=== PATIENT | female | born 1960 ===

== ENCOUNTER 2016-12-14 10:40 | Emergency (ER) | payer MEDICAID, MEDICARE, OTHER ==
[2016-12-14 10:47] VITALS: BMI 29.3
[2016-12-14 10:48] VITALS: O2SAT 99
[2016-12-14] MEDS ORDERED: Sodium Chloride 0.9% 1,000 ML IV ONE (11:24)
--- NOTE | 2016-12-14 11:46 | C.PDOC ---
History Of Present Illness 56 year old female presents to the ED with complaints of nausea, vomiting, and epigastric pain for the past 3 days. Patient states she started having diarrhea and dizziness yesterday and notes she is unable to tolerate any PO intake. She has never experienced this before and denies fever, chills, dysuria, radiation of pain, or any other complaints at this time. Time Seen by Provider: 12/14/16 10:48 Chief Complaint (Nursing): Abdominal Pain History Per: Patient History/Exam Limitations: no limitations Onset/Duration Of Symptoms: Days Current Symptoms Are (Timing): Still Present Severity: Mild Location Of Pain/Discomfort: Epigastric Radiation Of Pain To:: None Quality Of Discomfort: "Pain" Associated Symptoms: Nausea, Vomiting, Diarrhea. denies: Fever, Chills, Back Pain, Urinary Symptoms Abnormal Vaginal Bleeding: No Past Medical History Reviewed: Historical Data, Nursing Documentation, Vital Signs Vital Signs: Last Vital Signs Temp 98.1 F 12/14/16 13:22 Pulse 68 12/14/16 13:22 Resp 15 12/14/16 13:22 BP 119/76 12/14/16 13:22 Pulse Ox 99 12/14/16 13:22 - Medical History PMH: Anxiety, Depression Surgical History: Appendectomy - [facility] Procedures COLONOSCOPY (02/11/15) Family History: States: Unknown Family Hx - Social History Hx Alcohol Use: No Hx Substance Use: No - Immunization History Hx Tetanus Toxoid Vaccination: No Hx Influenza Vaccination: No Hx Pneumococcal Vaccination: No Review Of Systems Except As Marked, All Systems Reviewed And Found Negative. Gastrointestinal: Positive for: Nausea, Vomiting, Abdominal Pain, Diarrhea Neurological: Positive for: Dizziness Physical Exam - Physical Exam Appears: Non-toxic, Other (+Mild discomfort) Skin: Normal Color, Warm, Dry Head: Atraumatic, Normacephalic Eye(s): bilateral: Normal Inspection Oral Mucosa: Moist Chest: Symmetrical, No Deformity Cardiovascular: Rhythm Regular, No Murmur Respiratory: Normal Breath Sounds, No Accessory Muscle Use, No Rales, No Rhonchi , No Wheezing Gastrointestinal/Abdominal: Soft, Tenderness (+Mild epigastric and periumbilical tenderness), No Distention, No Guarding, No Rebound, No Other ( Negative Segundo's sign. Negative McBurney's point tenderness) Extremity: Normal ROM Neurological/Psych: Oriented x3, Normal Speech, Normal Cognition ED Course And Treatment - Laboratory Results Result Diagrams: 12/14/16 11:49 12/14/16 11:49 O2 Sat by Pulse Oximetry: 99 (Room air) Pulse Ox Interpretation: Normal Progress Note: Blood work and Urinalysis ordered and reviewed. Patient treated with pepcid, zofran, and IV fluids. Disposition Counseled Patient/Family Regarding: Studies Performed, Diagnosis, Need For Followup, Rx Given - Disposition Referrals: Rd Tatum MD [Staff Provider] - Disposition: HOME/ ROUTINE Disposition Time: 13:30 Condition: STABLE Additional Instructions: FOLLOW UP WITH GASTRONETEROLOGY TOMMORROW USE MEDICATIONS DIRECTED AVOID SPICY, ACIDIC FOODS RETURN TO EMERGENCY ROOM IF SYMPTOMS WORSEN SEGUIMIENTO CON GASTROENTEROLOGA MAANA USE MEDICAMENTOS SEGN LO DIRIGIDO EVITE LOS ALIMENTOS ACIDICOS DEVUELVA A LA NI DE EMERGENCIA SI LOS SNTOMAS EMPEORARAN Prescriptions: Pantoprazole [Protonix EC Tab] 20 mg PO DAILY #30 ect Ondansetron [Zofran Odt] 4 mg PO Q8 PRN #10 odt PRN Reason: Nausea/Vomiting Instructions: Epigastric Pain (ED) Print Language: BR[place] - POA Present On Arrival: None - Clinical Impression Clinical Impression: Abdominal pain, Epigastric abdominal pain - Scribe Statement The provider has reviewed the documentation as recorded by the Scribe mat see. Provider Attestation: All medical record entries made by the Scribe were at my direction and personally dictated by me. I have reviewed the chart and agree that the record accurately reflects my personal performance of the history, physical exam, medical decision making, and the department course for this patient. I have also personally directed, reviewed, and agree with the discharge instructions and disposition.
[2016-12-14 11:53] LABS: BASO # 0.1 K/uL (0.0-0.2); BASO % 0.9 % (0.0-2.0); EOS % 0.2 % (0.0-4.0); HEMATOCRIT 44.3 % (34.0-47.0); LYMPH % 24.4 % (20.0-40.0); MEAN CELL VOLUME 88.9 fL (81.0-99.0); MEAN CORPUSCULAR HEMOGLOBIN 29.6 pg (27.0-31.0); MEAN CORPUSCULAR HGB CONC 33.3 g/dL (33.0-37.0); MEAN PLATELET VOLUME 8.9 fL (7.2-11.7); MONO # 0.5 K/uL (0.0-0.8); MONO % 6.1 % (0.0-10.0); NRBC % 0.1 % (0.0-2.0); RED CELL DISTRIBUTION WIDTH 13.4 % (11.5-14.5); WHITE BLOOD COUNT 8.3 K/uL (4.8-10.8)
[2016-12-14] MEDS ORDERED: Sodium Chloride 0.9% 1,000 ML ONE (11:53)
[2016-12-14 12:01] LABS: CHLORIDE 103 mmol/L (98-107); SODIUM 141 mmol/L (132-148)
[2016-12-14 12:02] LABS: POTASSIUM 3.9 mmol/L (3.6-5.2)
[2016-12-14 12:04] LABS: ALB/GLOB RATIO 1.1 (1.0-2.1); ALKALINE PHOSPHATASE 77 U/L (38-126); ALT/SGPT 43 U/L (9-52); AST/SGOT 35 U/L (14-36); BILIRUBIN,TOTAL 0.7 mg/dL (0.2-1.3); BLOOD UREA NITROGEN 14 mg/dL (7-17); CALCIUM 8.8 mg/dl (8.6-10.4); CARBON DIOXIDE 26 mmol/L (22-30); GFR AFRICAN-AMERICAN > 60; GLUCOSE,RANDOM 80 mg/dL (65-105); TOTAL PROTEIN 7.2 g/dL (6.3-8.3)
[2016-12-14 12:07] LABS: RBC URINE 2 /hpf (0-3); URINE BACTERIA RARE (<OCC); URINE BILIRUBIN NEGATIVE (NEGATIVE); URINE BLOOD NEGATIVE (NEGATIVE); URINE COLOR Yellow (YELLOW); URINE GLUCOSE (UA) NORMAL (Normal); URINE KETONE TRACE mg/dL (NEGATIVE); URINE LEUKOCYTE ESTERASE 1+ Leu/uL (Negative); URINE PROTEIN NEGATIVE (NEGATIVE); URINE UROBILINOGEN NORMAL mg/dL (0.2-1.0); WBC URINE 7 /hpf (0-5)
[2016-12-14 13:23] VITALS: BP 119/76; PULSE 68; RESP 15; TEMP 98.1
== END 2016-12-14 13:50 | disposition home or self-care (01) ==
LOC: C.ER 10:40
DX: R10.13 Epigastric pain (principal)
CPT/HCPCS: 80053; 81001; 83690; 85025; 96361; 96374; 96375; 99285; J1885; J2405; J7040

== ENCOUNTER 2017-01-02 07:21 | Day surgery (SDC) | payer MEDICARE ==
[2017-01-02 07:47] VITALS: BMI 28.8
[2017-01-02] MEDS ORDERED: Midazolam 2 MG/2 ML VIAL ONE (08:37)
[2017-01-02] MEDS ORDERED: Propofol 10 mg/ml Inj (20 ML) ONE (08:37)
--- NOTE | 2017-01-02 08:40 | CP.SDSHP ---
Same Day Surgery H & P - History Proposed Procedure: EGD - Previous Medical/Surgical History Comments: Fibromyalgia, osteoporosis, osteoarthritis Previous Surgical History: Partial hysterectomy, appendectomy - Allergies Allergies: Allergies Penicillins Allergy (Verified 12/14/16 10:43) URTICARIA - Current Medications Current Medications: See reconciliation sheet - Physical Exam General Appearance: WD WN female in NAD Vital Signs: Vital Signs 01/02/17 07:47 Temperature 97.4 F L Pulse Rate 59 L Respiratory 19 Rate Blood Pressure 114/82 O2 Sat by Pulse 99 Oximetry Mental Status: Alert & Oriented x3 Neuro: WNL Heart: WNL Lungs: WNL GI: WNL - {Optional Preform as Required} Abdomen: WNL - Impression Impression: Epigastric pain Pt. Evaluated Today:Candidate for Anesthesia & Procedure: Yes - Date & Time Date: 01/02/17 Time: 08:40 Short Stay Discharge - Short Stay Discharge Admitting Diagnosis/Reason for Visit: EPIGASTRIC PAIN Disposition: HOME/ ROUTINE
[2017-01-02] MEDS ORDERED: Lactated Ringer's 500 ML IV ONE (09:25)
[2017-01-02 09:31] VITALS: TEMP 97.6; O2SAT 100
[2017-01-02 10:27] VITALS: BP 130/78; PULSE 58; RESP 10
== END 2017-01-02 10:52 | disposition home or self-care (01) ==
LOC: C.ENDO 07:21
PROVIDERS: ATTEND Internal Medicine Gastroenterology
DX: K22.2 Esophageal obstruction (principal); K44.9 Diaphragmatic hernia without obstruction or gangrene; K29.50 Unspecified chronic gastritis without bleeding; B96.81 Helicobacter pylori [H. pylori] as the cause of diseases classified elsewhere; K31.7 Polyp of stomach and duodenum
CPT/HCPCS: 43239; 88305; J2001; J2250; J2704; J7120

== ENCOUNTER 2017-10-16 05:58 | Day surgery (SDC) | payer MEDICARE ==
[2017-03-02 10:40] VITALS: BMI 28.8
[2017-10-16] MEDS ORDERED: ePHEDrine 50 mg/ml Inj ONE (08:10)
[2017-10-16] MEDS ORDERED: Lidocaine Hydrochloride 5 ML INJ ONE (08:10)
[2017-10-16] MEDS ORDERED: Midazolam 2 MG/2 ML VIAL ONE (08:11)
[2017-10-16] MEDS ORDERED: Propofol 10 mg/ml Inj (20 ML) ONE ×2 (08:11→09:04)
--- NOTE | 2017-10-16 08:53 | CP.SDSHP ---
Same Day Surgery H & P - History Proposed Procedure: colonoscopy Pre-Op Diagnosis: Change in bowel habits - Previous Medical/Surgical History Comments: Arthritis, osteoporosis Previous Surgical History: Hysterectomy, appendectomy - Allergies Allergies: Allergies Penicillins Allergy (Severe, Verified 05/25/17 08:07) CONVULSIONS - Current Medications Current Medications: See reconciliation sheet - Physical Exam General Appearance: WD WN female in NAD Vital Signs: Vital Signs 10/16/17 10/16/17 06:41 08:48 Temperature 99.6 F 99.6 F Pulse Rate 72 72 Respiratory 19 19 Rate Blood Pressure 123/80 123/80 O2 Sat by Pulse 99 99 Oximetry Mental Status: Alert & Oriented x3 Neuro: WNL Heart: WNL Lungs: WNL GI: WNL - {Optional Preform as Required} Abdomen: WNL - Impression Impression: Chamge in bowel habits Pt. Evaluated Today:Candidate for Anesthesia & Procedure: Yes - Date & Time Date: 10/16/17 Time: 08:52 Short Stay Discharge - Short Stay Discharge Admitting Diagnosis/Reason for Visit: CHANGE IN BOWEL HABITS Disposition: HOME/ ROUTINE
[2017-10-16 10:26] VITALS: TEMP 97.1
[2017-10-16] MEDS: Lactated Ringer's 1,000 ML IV SCH ×2 (12:03→15:48)
[2017-10-16 15:58] VITALS: BP 128/88; PULSE 62; RESP 18; O2SAT 98
== END 2017-10-16 12:03 | disposition home or self-care (01) ==
LOC: C.ENDO 05:58
PROVIDERS: ATTEND Internal Medicine Gastroenterology
DX: R19.4 Change in bowel habit (principal); M81.0 Age-related osteoporosis without current pathological fracture; M19.90 Unspecified osteoarthritis, unspecified site; Z88.0 Allergy status to penicillin; K64.0 First degree hemorrhoids
CPT/HCPCS: 45378; J2250; J2405; J2704; J7120

== ENCOUNTER 2018-03-30 12:22 | Emergency (ER) | payer MEDICARE ==
[2018-03-30 12:23] VITALS: BMI 29.3
[2018-03-30 12:33] VITALS: TEMP 98.3; O2SAT 100
--- NOTE | 2018-03-30 14:25 | C.PDOC ---
History Of Present Illness 57 y/o female presents to ED with c/o left upper back pain for 3 days. Patient states she has seen PMD for symptoms and given Percocet, last dose was taken last night and states she does not have anymore medication. Contrary to triage patient denies chest pain and states chronic back and neck pain are more intense now prompting visit to ED. Patient denies fever, chills, nausea, vomiting, bowel/bladder incontinence or any other complaints at this time. Time Seen by Provider: 03/30/18 12:28 Chief Complaint (Nursing): Chest Pain History Per: Patient History/Exam Limitations: no limitations Onset/Duration Of Symptoms: Days Current Symptoms Are (Timing): Still Present Quality Of Discomfort: "Pain" Past Medical History Reviewed: Historical Data, Nursing Documentation, Vital Signs Vital Signs: Last Vital Signs Temp 98.3 F 03/30/18 12:29 Pulse 82 03/30/18 14:08 Resp 20 03/30/18 14:08 BP 145/85 03/30/18 14:08 Pulse Ox 100 03/30/18 14:56 - Medical History PMH: Anxiety, Depression, Fibromyalgia, Hiatal Hernia, Osteoporosis Surgical History: Appendectomy, Cholecystectomy, Endoscopy - [facility] Procedures COLONOSCOPY (02/11/15) Family History: States: No Known Family Hx - Social History Hx Alcohol Use: No Hx Substance Use: No - Immunization History Hx Tetanus Toxoid Vaccination: No Hx Influenza Vaccination: No Hx Pneumococcal Vaccination: No Review Of Systems Constitutional: Negative for: Fever, Chills Gastrointestinal: Negative for: Nausea, Vomiting, Abdominal Pain Genitourinary: Negative for: Dysuria, Incontinence Musculoskeletal: Positive for: Back Pain Skin: Negative for: Rash Neurological: Negative for: Weakness, Numbness Physical Exam - Physical Exam Appears: Non-toxic, No Acute Distress Skin: Warm, Dry, No Rash Head: Atraumatic, Normacephalic Eye(s): bilateral: Normal Inspection Oral Mucosa: Moist Neck: Decreased ROM Cardiovascular: Rhythm Regular Respiratory: Normal Breath Sounds, No Rales, No Rhonchi, No Wheezing Gastrointestinal/Abdominal: Soft, No Tenderness, No Guarding, No Rebound Back: Muscle Spasm, Other (Bilateral upper back tenderness) Neurological/Psych: Oriented x3, Normal Speech, Normal Motor, Normal Sensation ED Course And Treatment O2 Sat by Pulse Oximetry: 100 Medical Decision Making Medical Decision Making: PRIOR RECORDS REVIEWED: MRI 07/2017- SHOULDER TENDON TENDERNESS C-SPINE CT SCAN- BULGE SPINE C5-C6 & NERVE CYST @C6-C7 MRI 07/2017- LS SPINE NEGATIVE RESULTS, WITHIN NORMAL LIMITS PT ALREADY UNDER CARE OF SPINAL/PAIN MGMT. ADVISED NEED FOR FU FOR PAIN MED ADJUST Disposition Counseled Patient/Family Regarding: Diagnosis, Need For Followup - Disposition Referrals: YOUR,SPINAL/PAIN MGMT MD [Other] Disposition: HOME/ ROUTINE Disposition Time: 15:29 Condition: IMPROVED Prescriptions: Cyclobenzaprine [Flexeril] 10 mg PO TID #15 tab Gabapentin [Neurontin] 300 mg PO TID #30 cap Ibuprofen [Motrin] 600 mg PO Q6 #30 tab Instructions: Radiculopathy (DC) Forms: [employer] (Korean) Print Language: MONTENEGRIN - Clinical Impression Clinical Impression: Cervical radiculopathy - Scribe Statement The provider has reviewed the documentation as recorded by the Pettyibdorian Stringer All medical record entries made by the Pettyibdorian were at my direction and personally dictated by me. I have reviewed the chart and agree that the record accurately reflects my personal performance of the history, physical exam, medical decision making, and the department course for this patient. I have also personally directed, reviewed, and agree with the discharge instructions and disposition.
[2018-03-30] MEDS ORDERED: Dexamethasone 4 mg/1 ml IVP STA (14:27)
[2018-03-30 15:18] LABS: SQUAMOUS EPITHIAL 2 /hpf (0-5); URINE BILIRUBIN NEGATIVE (NEGATIVE); URINE BLOOD NEGATIVE (NEGATIVE); URINE CLARITY Clear (Clear); URINE COLOR Yellow (YELLOW); URINE GLUCOSE (UA) NORMAL (Normal); URINE LEUKOCYTE ESTERASE NEG Leu/uL (Negative); URINE PROTEIN NEGATIVE (NEGATIVE); URINE UROBILINOGEN NORMAL mg/dL (0.2-1.0)
[2018-03-30 16:03] VITALS: BP 133/84; PULSE 60; RESP 20
== END 2018-03-30 16:49 | disposition home or self-care (01) ==
LOC: C.ER 12:22
DX: M54.12 Radiculopathy, cervical region (principal)
CPT/HCPCS: 81001; 96374; 96375; 99284; J1100; J1885

== ENCOUNTER 2018-12-28 06:01 | Observation (INO) | payer MEDICARE ==
[2018-12-28 06:02] VITALS: BMI 29.3
[2018-12-28] MEDS ORDERED: Sodium Chloride 0.9% 1,000 ML IV ONE (07:43)
--- NOTE | 2018-12-28 07:49 | C.PDOC ---
History Of Present Illness 58 y/o female c/o abdominal pain for 2 weeks; seen in ED twice, once on 12/15 and once on 12/22, diagnosed with colitis on second visit and discharged with cipro and flagyl. pt did not take antibiotics due to several episodes of vomiting per day, sts she wouldn't hold them down and her stomach hurts; as well, sts she had blood in her stool on Mon with diarrhea. no bm since mon. pt reports she is unable to tolerate anything by mouth. Time Seen by Provider: 12/28/18 06:59 Chief Complaint (Nursing): Abdominal Pain History Per: Patient, Blueprint Duplicator (Kady [id number]) History/Exam Limitations: language barrier Onset/Duration Of Symptoms: Days (2 weeks) Current Symptoms Are (Timing): Still Present Location Of Pain/Discomfort: Diffuse Quality Of Discomfort: Unable To Describe Associated Symptoms: Nausea, Vomiting, Diarrhea, Urinary Symptoms Exacerbating Factors: None Last Bowel Movement: Days Ago (2) Past Medical History Reviewed: Historical Data, Nursing Documentation, Vital Signs Vital Signs: Last Vital Signs Temp 97.9 F 12/28/18 06:25 Pulse 98 H 12/28/18 06:25 Resp 16 12/28/18 06:25 BP 136/83 12/28/18 06:25 Pulse Ox 98 12/28/18 06:25 - Medical History PMH: Anxiety, Depression, Fibromyalgia, Hiatal Hernia, Osteoporosis Denies: Chronic Kidney Disease Surgical History: Appendectomy, Cholecystectomy, Endoscopy - [facility] Procedures COLONOSCOPY (02/11/15) Family History: States: Unknown Family Hx - Social History Hx Alcohol Use: No Hx Substance Use: No - Immunization History Hx Tetanus Toxoid Vaccination: No Hx Influenza Vaccination: No Hx Pneumococcal Vaccination: No Review Of Systems Constitutional: Positive for: Fever (2 weeks ago) Cardiovascular: Negative for: Chest Pain Respiratory: Positive for: Cough. Negative for: Shortness of Breath Gastrointestinal: Positive for: Nausea, Vomiting, Abdominal Pain, Diarrhea Genitourinary: Positive for: Dysuria Skin: Positive for: Bruising (lower back from pain mgmt injections) Neurological: Negative for: Weakness, Numbness Physical Exam - Physical Exam Appears: Non-toxic, No Acute Distress Skin: Warm, Dry Head: Atraumatic, Normacephalic Eye(s): bilateral: Normal Inspection Tongue: Other (dry, whitish coating) Lips: Other (chapped) Neck: Supple Chest: No Deformity, No Tenderness Cardiovascular: Rhythm Regular, No Murmur Respiratory: No Decreased Breath Sounds, No Wheezing Rectal: Normal Exam, Other (premium service representative by PERRY Cook) Extremity: No Tenderness, No Swelling ED Course And Treatment - Laboratory Results Result Diagrams: 12/28/18 07:55 12/28/18 07:55 O2 Sat by Pulse Oximetry: 98 Medical Decision Making Medical Decision Making: pt with diffuse abdominal pain, n,v,d, blood in stool, not tolerating po. pt has had [address] scans 12/15 and 12/22, colitis noted on second exam. pt now with elevated wbc, will give iv antibiotics and admit. will not get another ct scan at this time. will get gi consult. discusses with Dr Jayy Oliva, will admit to his service. Disposition Discussed With : Emily Oliva Doctor Will See Patient In The: Hospital - Disposition Disposition: HOSPITALIZED Disposition Time: 08:47 Condition: GOOD Forms: [facility] (Welsh) - Clinical Impression Clinical Impression: Abdominal pain, Colitis
[2018-12-28 08:02] LABS: BASO # 0.1 K/uL (0.0-0.2); BASO % 0.7 % (0.0-2.0); HEMOGLOBIN 14.6 g/dL (11.0-16.0); LYMPH # 1.3 K/uL (1.0-4.3); LYMPH % 11.1 % (20.0-40.0); MEAN CELL VOLUME 90.6 fL (81.0-99.0); MEAN CORPUSCULAR HGB CONC 34.2 g/dL (33.0-37.0); MEAN PLATELET VOLUME 9.8 fL (7.2-11.7); MONO # 0.4 K/uL (0.0-0.8); MONO % 3.2 % (0.0-10.0); NEUT # 10.1 K/uL (1.8-7.0); RBC 4.72 Mil/uL (3.80-5.20); RED CELL DISTRIBUTION WIDTH 13.5 % (11.5-14.5)
[2018-12-28] MEDS ORDERED: Sodium Chloride 0.9% 1,000 ML ONE (08:10)
[2018-12-28 08:13] LABS: ALB/GLOB RATIO 1.5 (1.0-2.1); ALBUMIN 4.1 g/dL (3.5-5.0); ALT/SGPT 18 U/L (9-52); AST/SGOT 25 U/L (14-36); BLOOD UREA NITROGEN 14 mg/dL (7-17); CALCIUM 9.2 mg/dl (8.6-10.4); GFR NON-AFRICAN AMERICAN > 60; LIPASE 46 U/L (23-300)
[2018-12-28] MEDS ORDERED: metroNIDAZOLE IV 500 mg/100 ml 500 MG/100 ML BAG IVPB STA (08:42)
[2018-12-28] MEDS ORDERED: Ciprofloxacin 400mg/200ml D5W 400 MG/200 ML BAG IVPB STA (08:42)
[2018-12-28] MEDS ORDERED: metroNIDAZOLE IV 500 mg/100 ml 500 MG/100 ML BAG ONE (08:50)
[2018-12-28] MEDS ORDERED: Ciprofloxacin 400mg/200ml D5W 400 MG/200 ML BAG IVPB ONE (10:07)
[2018-12-28 10:44] LABS: SQUAMOUS EPITHIAL 3 /hpf (0-5); URINE BACTERIA RARE (<OCC); URINE BILIRUBIN NEGATIVE (NEGATIVE); URINE BLOOD NEGATIVE (NEGATIVE); URINE CLARITY Clear (Clear); URINE COLOR Yellow (YELLOW); URINE GLUCOSE (UA) NORMAL (Normal); URINE LEUKOCYTE ESTERASE NEG Leu/uL (Negative); URINE PROTEIN NEGATIVE (NEGATIVE); URINE UROBILINOGEN NORMAL mg/dL (0.2-1.0)
--- NOTE | 2018-12-28 13:23 | CP.PCM.CON ---
History of Present Illness - History of Present Illness History of Present Illness: This is a 58 year old woman with abdominal pain. Patient is known to me from the office. She complains of diffuse abdominal pain for the past month. the pain is described as sharp, stabbing, occurring daily, essentially constant, worse after eating and unrelated to defecation. She also reports having a second type of abdominal discomfort, associated with defecation, an unpleasant sensation which seems to improve when she strains. While pushing, she develops pain in the lower abdomen, twisting, radiating to the left lower extremity and relieved by standing. She also complains of nausea, moving, loss of appetite and heartburn. She had diarrhea and rectal bleeding which prompted her to present to the ER at [facility] on 12/15/18 and 12/22/18. At [facility], she was evaluated with blood tests and CT scans on both occasions. The first scan was normal, but the second scan, the one performed on 12/22/18 suggested thickening of the wall of the distal rectosigmoid colon and rectum, possibly due to under-distention. She was given prescriptions for ciprofloxacin and metronidazole, but did not fill them. The symptoms persisted, and she presented to the ER at today. She has not had any diarrhea since Monday, but still has pain and is vomiting daily. Vital signs were stable. Colonoscopy was performed 10/16/2017 and was normal except for internal hemorrhoids. EGD was perfomed 01/02/17 and shewed hiatal hernia, erosive gastritis, and H pylori infection. Review of Systems - Review of Systems All systems: reviewed and no additional remarkable complaints except - Constitutional Constitutional: Fever. absent: Weight Loss - Cardiovascular Cardiovascular: absent: Chest Pain - Respiratory Respiratory: Cough. absent: Dyspnea - Gastrointestinal Gastrointestinal: Abdominal Pain, Diarrhea, Heartburn, Hematochezia, Nausea, Vomiting. absent: Dysphagia - Genitourinary Genitourinary: Dysuria - Neurological Neurological: absent: Numbness, Weakness Past Patient History - Infectious Disease Hx of Infectious Diseases: None - Tetanus Immunizations Tetanus Immunization: Unknown - Past Medical History & Family History Past Medical History?: Yes - Past Social History Smoking Status: Never Smoked - PULMONARY Hx Respiratory Disorders: No - NEUROLOGICAL Hx Neurological Disorder: Yes - HEENT Hx HEENT Problems: No - RENAL Hx Chronic Kidney Disease: No - ENDOCRINE/METABOLIC Hx Endocrine Disorders: No - HEMATOLOGICAL/ONCOLOGICAL Hx Blood Disorders: No - INTEGUMENTARY Hx Dermatological Problems: No - MUSCULOSKELETAL/RHEUMATOLOGICAL Hx Osteoporosis: Yes - GASTROINTESTINAL Hx Gastrointestinal Disorders: Yes - GENITOURINARY/GYNECOLOGICAL Hx Genitourinary Disorders: No - PSYCHIATRIC Hx Anxiety: Yes Hx Depression: Yes Hx Substance Use: No - SURGICAL HISTORY Hx Appendectomy: Yes Hx Cholecystectomy: Yes - ANESTHESIA Hx Anesthesia: Yes Hx Anesthesia Reactions: No Hx Malignant Hyperthermia: No Meds Allergies/Adverse Reactions: Allergies Allergy/AdvReac Type Severity Reaction Status Date / Time Penicillins Allergy Severe CONVULSIONS Verified 12/28/18 06:30 - Medications Medications: Current Medications Cyclobenzaprine HCl (Flexeril) 5 mg PO TID PRN PRN Reason: Muscle spasm Ciprofloxacin (Cipro 200mg/100ml D5w) 100 mls @ 67 mls/hr IVPB Q12H DYLAN; Protocol Metronidazole 250 mg/ (Miscellaneous) 50 mls @ 100 mls/hr IVPB Q8H DYLAN; Protocol Ibuprofen (Motrin Tab) 600 mg PO Q6 PRN PRN Reason: Pain, moderate (4-7) Lidocaine (Lidoderm) 1 ea TD DAILY PRN PRN Reason: Pain, moderate (4-7) Loperamide HCl (Imodium) 2 mg PO Q6 PRN PRN Reason: Diarrhea Losartan Potassium (Cozaar) 50 mg PO DAILY DYLAN Ondansetron HCl (Zofran Tab) 4 mg PO Q8H PRN PRN Reason: Nausea/Vomiting Sertraline HCl (Zoloft) 100 mg PO DAILY DYLAN Physical Exam - Constitutional Appears: No Acute Distress - Head Exam Head Exam: ATRAUMATIC, NORMOCEPHALIC - Eye Exam Eye Exam: EOMI, PERRL - Neck Exam Neck exam: Negative for: Lymphadenopathy, Thyromegaly - Respiratory Exam Respiratory Exam: NORMAL BREATHING PATTERN. absent: Rales, Rhonchi, Wheezes - Cardiovascular Exam Cardiovascular Exam: REGULAR RHYTHM, +S1, +S2. absent: Gallop, Rubs, Systolic Murmur - GI/Abdominal Exam GI & Abdominal Exam: Normal Bowel Sounds, Soft, Tenderness. absent: Mass, Organomegaly Additional comments: Mild tenderness to palpation in RLQ - Rectal Exam Rectal Exam: Deferred - Extremities Exam Extremities exam: Negative for: calf tenderness, pedal edema Results - Vital Signs Recent Vital Signs: Last Vital Signs Temp 98.8 F 12/28/18 12:42 Pulse 68 12/28/18 12:42 Resp 18 12/28/18 12:42 BP 128/82 12/28/18 12:42 Pulse Ox 96 12/28/18 12:42 - Labs Result Diagrams: 12/28/18 07:55 12/28/18 07:55 Labs: Laboratory Results - last 24 hr 12/28/18 12/28/18 12/28/18 07:53 07:55 07:55 WBC 12.0 H D RBC 4.72 Hgb 14.6 Hct 42.8 MCV 90.6 MCH 31.0 MCHC 34.2 RDW 13.5 Plt Count 267 MPV 9.8 Neut % (Auto) 85.0 H Lymph % (Auto) 11.1 L [place] % (Auto) 3.2 Eos % (Auto) 0.0 Baso % (Auto) 0.7 Neut # (Auto) 10.1 H Lymph # (Auto) 1.3 [place] # (Auto) 0.4 Eos # (Auto) 0.0 Baso # (Auto) 0.1 Sodium 138 Potassium 4.0 Chloride 106 Carbon Dioxide 25 Anion Gap 11 BUN 14 Creatinine 0.7 Est GFR ( Amer) > 60 Est GFR (Non-Af Amer) > 60 Random Glucose 104 Calcium 9.2 Total Bilirubin 0.3 AST 25 ALT 18 Alkaline Phosphatase 87 Total Protein 6.9 Albumin 4.1 Globulin 2.8 Albumin/Globulin Ratio 1.5 Lipase 46 Urine Color Urine Clarity Urine pH Ur Specific [place] Urine Protein Urine Glucose (UA) Urine Ketones Urine Blood Urine Nitrate Urine Bilirubin Urine Urobilinogen Ur Leukocyte Esterase Urine WBC (Auto) Urine RBC (Auto) Ur Squamous Epith Cells Urine Bacteria Stool Occult Blood Positive H 12/28/18 10:24 WBC RBC Hgb Hct MCV MCH MCHC RDW Plt Count MPV Neut % (Auto) Lymph % (Auto) [place] % (Auto) Eos % (Auto) Baso % (Auto) Neut # (Auto) Lymph # (Auto) [place] # (Auto) Eos # (Auto) Baso # (Auto) Sodium Potassium Chloride Carbon Dioxide Anion Gap BUN Creatinine Est GFR ( Amer) Est GFR (Non-Af Amer) Random Glucose Calcium Total Bilirubin AST ALT Alkaline Phosphatase Total Protein Albumin Globulin Albumin/Globulin Ratio Lipase Urine Color Yellow Urine Clarity Clear Urine pH 5.0 Ur Specific [place] 1.010 Urine Protein Negative Urine Glucose (UA) Normal Urine Ketones Negative Urine Blood Negative Urine Nitrate Negative Urine Bilirubin Negative Urine Urobilinogen Normal Ur Leukocyte Esterase Neg Urine WBC (Auto) 4 Urine RBC (Auto) 1 Ur Squamous Epith Cells 3 Urine Bacteria Rare Stool Occult Blood Assessment & Plan (1) Abdominal pain Assessment and Plan: Patient has a one month history of abdominal pain with CT scan showing only possible wall thickening of rectum and rectosigmoid. Stool occult blood was positive, but HGB has been stable at 14.5-14.6. Last colonoscopy was negative (10/16/17). Will check CT angiogram. Colonoscopy can be repeated Monday or as an outpatient. Status: Acute
[2018-12-28] MEDS ORDERED: Iodixanol 320 MG/ML 100 ML BOTTLE IV ONE (16:28)
--- NOTE | 2018-12-28 17:12 | CT ---
Date of service: 12/28/2018 PROCEDURE: CT Angiography Abdomen, Pelvis and Lower Extremity with Contrast HISTORY: Abdominal pain, mesenteric ischemia COMPARISON: None. TECHNIQUE: Technique: CT angiography of the abdomen, pelvis and bilateral lower extremities performed in the arterial phase of enhancement. Coronal and sagittal reformats, and well as rotating MIP images of the vessels generated at the workstation. Intravenous contrast dose: 100 mL Visipaque 320 Radiation dose: Total exam DLP = 1091.36 mGy-cm. This CT exam was performed using one or more of the following dose reduction techniques: Automated exposure control, adjustment of the mA and/or kV according to patient size, and/or use of iterative reconstruction technique. FINDINGS: CT ANGIOGRAPHY: No aortic atherosclerotic calcification or mural plaque present. ABDOMINAL AORTA:: No evidence of aneurysm. No evidence of dissection. No atherosclerotic calcification. MAJOR AORTIC BRANCHES: Celiac [place]: Unremarkable. Superior mesenteric artery: Unremarkable. Inferior mesenteric artery: Unremarkable. Renal arteries: Unremarkable. PELVIC ARTERIES: Right Common Iliac: Unremarkable. Right External Iliac: Unremarkable. Right Internal Iliac: Unremarkable. Left Common Iliac: Unremarkable. Left External Iliac: Unremarkable. Left Internal Iliac: Unremarkable. NON-ANGIOGRAPHIC ASPECT OF THE EXAM: LOWER THORAX: Unremarkable. LIVER: Unremarkable. No gross lesion or ductal dilatation. GALLBLADDER AND BILE DUCTS: Status post cholecystectomy PANCREAS: Unremarkable. No gross lesion or ductal dilatation. SPLEEN: Unremarkable. ADRENALS: Unremarkable. No mass. KIDNEYS AND URETERS: Unremarkable. No hydronephrosis. No solid mass. STOMACH AND BOWEL: Unremarkable. No obstruction. No gross mural thickening. APPENDIX: Not identified. No secondary findings to suggest acute appendicitis. PERITONEUM: Unremarkable. No free fluid. No free air. LYMPH NODES: Unremarkable. No enlarged lymph nodes. BLADDER: Suboptimally distended. Grossly unremarkable. REPRODUCTIVE: Status post hysterectomy BONES: No acute fracture. OTHER FINDINGS: None. IMPRESSION: No evidence of SMA thrombosis. Minor findings as above.
[2018-12-28] MEDS: metroNIDAZOLE IV 500 mg/100 ml 250 MG in Premixed IV 1 EA IVPB SCH ×2 (17:46→23:50)
[2018-12-28] MEDS: Lidocaine 5% Patch TD PRN (18:40)
--- NOTE | 2018-12-28 19:56 | CP.PCM.HP ---
Past Patient History - Infectious Disease Hx of Infectious Diseases: None - Tetanus Immunizations Tetanus Immunization: Unknown - Past Medical History & Family History Past Medical History?: Yes - Past Social History Smoking Status: Never Smoked - PULMONARY Hx Respiratory Disorders: No - NEUROLOGICAL Hx Neurological Disorder: Yes - HEENT Hx HEENT Problems: No - RENAL Hx Chronic Kidney Disease: No - ENDOCRINE/METABOLIC Hx Endocrine Disorders: No - HEMATOLOGICAL/ONCOLOGICAL Hx Blood Disorders: No - INTEGUMENTARY Hx Dermatological Problems: No - MUSCULOSKELETAL/RHEUMATOLOGICAL Hx Osteoporosis: Yes - GASTROINTESTINAL Hx Gastrointestinal Disorders: Yes - GENITOURINARY/GYNECOLOGICAL Hx Genitourinary Disorders: No - PSYCHIATRIC Hx Anxiety: Yes Hx Depression: Yes Hx Substance Use: No - SURGICAL HISTORY Hx Appendectomy: Yes Hx Cholecystectomy: Yes - ANESTHESIA Hx Anesthesia: Yes Hx Anesthesia Reactions: No Hx Malignant Hyperthermia: No Meds Allergies/Adverse Reactions: Allergies Allergy/AdvReac Type Severity Reaction Status Date / Time Penicillins Allergy Severe CONVULSIONS Verified 12/28/18 06:30 Physical Exam - Constitutional Appears: Well - Head Exam Head Exam: ATRAUMATIC, NORMAL INSPECTION, NORMOCEPHALIC - Eye Exam Eye Exam: EOMI, Normal appearance, PERRL Pupil Exam: NORMAL ACCOMODATION, PERRL - ENT Exam ENT Exam: Mucous Membranes Moist, Normal Exam - Neck Exam Neck exam: Positive for: Normal Inspection - Respiratory Exam Respiratory Exam: Decreased Breath Sounds - Cardiovascular Exam Cardiovascular Exam: REGULAR RHYTHM, +S1, +S2 - GI/Abdominal Exam GI & Abdominal Exam: Diminished Bowel Sounds, Soft - Rectal Exam Rectal Exam: Deferred - Neurological Exam Neurological exam: Oriented x3 Results - Vital Signs Recent Vital Signs: Last Vital Signs Temp 97.9 F 12/28/18 16:00 Pulse 66 12/28/18 16:00 Resp 20 12/28/18 16:00 BP 127/83 12/28/18 16:00 Pulse Ox 98 12/28/18 16:00 - Labs Result Diagrams: 12/28/18 07:55 12/28/18 07:55 Labs: Laboratory Results - last 24 hr 12/28/18 12/28/18 12/28/18 07:53 07:55 07:55 WBC 12.0 H D RBC 4.72 Hgb 14.6 Hct 42.8 MCV 90.6 MCH 31.0 MCHC 34.2 RDW 13.5 Plt Count 267 MPV 9.8 Neut % (Auto) 85.0 H Lymph % (Auto) 11.1 L [place] % (Auto) 3.2 Eos % (Auto) 0.0 Baso % (Auto) 0.7 Neut # (Auto) 10.1 H Lymph # (Auto) 1.3 [place] # (Auto) 0.4 Eos # (Auto) 0.0 Baso # (Auto) 0.1 Sodium 138 Potassium 4.0 Chloride 106 Carbon Dioxide 25 Anion Gap 11 BUN 14 Creatinine 0.7 Est GFR ( Amer) > 60 Est GFR (Non-Af Amer) > 60 POC Glucose (mg/dL) Random Glucose 104 Calcium 9.2 Total Bilirubin 0.3 AST 25 ALT 18 Alkaline Phosphatase 87 Total Protein 6.9 Albumin 4.1 Globulin 2.8 Albumin/Globulin Ratio 1.5 Lipase 46 Urine Color Urine Clarity Urine pH Ur Specific [place] Urine Protein Urine Glucose (UA) Urine Ketones Urine Blood Urine Nitrate Urine Bilirubin Urine Urobilinogen Ur Leukocyte Esterase Urine WBC (Auto) Urine RBC (Auto) Ur Squamous Epith Cells Urine Bacteria Stool Occult Blood Positive H 12/28/18 12/28/18 10:24 16:06 WBC RBC Hgb Hct MCV MCH MCHC RDW Plt Count MPV Neut % (Auto) Lymph % (Auto) [place] % (Auto) Eos % (Auto) Baso % (Auto) Neut # (Auto) Lymph # (Auto) [place] # (Auto) Eos # (Auto) Baso # (Auto) Sodium Potassium Chloride Carbon Dioxide Anion Gap BUN Creatinine Est GFR ( Amer) Est GFR (Non-Af Amer) POC Glucose (mg/dL) 81 Random Glucose Calcium Total Bilirubin AST ALT Alkaline Phosphatase Total Protein Albumin Globulin Albumin/Globulin Ratio Lipase Urine Color Yellow Urine Clarity Clear Urine pH 5.0 Ur Specific [place] 1.010 Urine Protein Negative Urine Glucose (UA) Normal Urine Ketones Negative Urine Blood Negative Urine Nitrate Negative Urine Bilirubin Negative Urine Urobilinogen Normal Ur Leukocyte Esterase Neg Urine WBC (Auto) 4 Urine RBC (Auto) 1 Ur Squamous Epith Cells 3 Urine Bacteria Rare Stool Occult Blood
[2018-12-28] MEDS: Ciprofloxacin 200mg/100ml D5W 100 ML IVPB SCH (21:35)
[2018-12-29 07:12] LABS: BASO # 0.1 K/uL (0.0-0.2); BASO % 0.9 % (0.0-2.0); EOS # 0.1 K/uL (0.0-0.7); EOS % 0.7 % (0.0-4.0); HEMOGLOBIN 14.2 g/dL (11.0-16.0); LYMPH # 3.4 K/uL (1.0-4.3); LYMPH % 40.6 % (20.0-40.0); MEAN CELL VOLUME 90.5 fL (81.0-99.0); MEAN CORPUSCULAR HEMOGLOBIN 31.4 pg (27.0-31.0); MEAN CORPUSCULAR HGB CONC 34.7 g/dL (33.0-37.0); MEAN PLATELET VOLUME 9.8 fL (7.2-11.7); MONO # 0.5 K/uL (0.0-0.8); MONO % 6.6 % (0.0-10.0); NEUT # 4.2 K/uL (1.8-7.0); NEUT % 51.2 % (50.0-75.0); RBC 4.51 Mil/uL (3.80-5.20); RED CELL DISTRIBUTION WIDTH 13.5 % (11.5-14.5); WHITE BLOOD COUNT 8.3 K/uL (4.8-10.8)
[2018-12-29 07:35] LABS: ALB/GLOB RATIO 1.5 (1.0-2.1); ALBUMIN 3.6 g/dL (3.5-5.0); ALT/SGPT 22 U/L (9-52); AST/SGOT 25 U/L (14-36); BLOOD UREA NITROGEN 11 mg/dL (7-17); CALCIUM 8.6 mg/dl (8.6-10.4); GFR NON-AFRICAN AMERICAN > 60
[2018-12-29] MEDS: metroNIDAZOLE IV 500 mg/100 ml 250 MG in Premixed IV 1 EA IVPB SCH ×3 (08:03→22:34)
[2018-12-29] MEDS: Ciprofloxacin 200mg/100ml D5W 100 ML IVPB SCH ×2 (09:45→21:27)
[2018-12-29] MEDS ORDERED: Pneumococcal 23-Valent Vaccine IM ONE (10:00)
--- NOTE | 2018-12-29 12:01 | CP.PCM.PN ---
Subjective - Date & Time of Evaluation Date of Evaluation: 12/29/18 Time of Evaluation: 12:11 - Subjective Subjective: COVERING DR STEEN Patient has had two episodes of bilious emesis with basin at bedside with yellow bile No bowel movement and no bleeding. Diffuse mid abdominal and LLQ pain persists. CTA yesterday reported as negative for occlusion. No masses seen. Objective - Vital Signs/Intake and Output Vital Signs (last 24 hours): Temp Pulse Resp BP Pulse Ox 97.9 F 67 20 114/79 97 12/29/18 07:00 12/29/18 07:00 12/29/18 07:00 12/29/18 07:00 12/29/18 07:00 - Medications Medications: Current Medications Acetaminophen (Tylenol 325mg Tab) 650 mg PO Q6 PRN PRN Reason: Pain, Mild (1-3) Cyclobenzaprine HCl (Flexeril) 5 mg PO TID PRN PRN Reason: Muscle spasm Last Admin: 12/28/18 18:40 Dose: 5 mg Ciprofloxacin (Cipro 200mg/100ml D5w) 100 mls @ 67 mls/hr IVPB Q12H [facility]; Protocol Last Admin: 12/29/18 09:45 Dose: 67 mls/hr Metronidazole 250 mg/ (Miscellaneous) 50 mls @ 100 mls/hr IVPB Q8H DYLAN; Pr otocol Last Admin: 12/29/18 08:03 Dose: 100 mls/hr Lidocaine (Lidoderm) 1 ea TD DAILY PRN PRN Reason: Pain, moderate (4-7) Last Admin: 12/28/18 18:40 Dose: 1 ea Losartan Potassium (Cozaar) 50 mg PO DAILY [facility] Last Admin: 12/29/18 09:44 Dose: 50 mg Metoclopramide HCl (Reglan) 5 mg IVP ACTID [facility] Ondansetron HCl (Zofran Inj) 4 mg IVP Q8H PRN PRN Reason: Nausea/Vomiting Pantoprazole Sodium (Protonix Inj) 40 mg IVP DAILY [facility] Last Admin: 12/29/18 09:44 Dose: 40 mg Sertraline HCl (Zoloft) 100 mg PO DAILY [facility] Last Admin: 12/29/18 09:44 Dose: 100 mg - Labs Labs: 12/29/18 07:00 12/29/18 07:00 - Constitutional Appears: No Acute Distress - Head Exam Head Exam: ATRAUMATIC, NORMOCEPHALIC - Respiratory Exam Respiratory Exam: NORMAL BREATHING PATTERN - Cardiovascular Exam Cardiovascular Exam: REGULAR RHYTHM, +S1 - GI/Abdominal Exam GI & Abdominal Exam: Soft, Tenderness, Normal Bowel Sounds. absent: Guarding, Mass, Rebound Additional comments: LLQ tenderness to deep palpation. - Extremities Exam Extremities Exam: Normal Inspection. absent: Pedal Edema - Neurological Exam Neurological Exam: Alert, Oriented x3 - Skin Skin Exam: Dry, Warm Assessment and Plan (1) Abdominal pain, lower Assessment & Plan: Patient with continued lower and mid abdominal pain. CTA negative for ischemic changes or thrombosis. Abnormal distal colon seen on prior CT SCan at [facility]. Plan for colonoscopy on Monday if able to tolerate po preparation. Continue supportive care. Status: Acute (2) Occult blood in stools Assessment & Plan: as above. No overt bleeding or change in H/H Status: Acute (3) Vomiting Status: Acute (4) Abnormal CT scan, colon Status: Acute
--- NOTE | 2018-12-29 15:30 | CP.PCM.PN ---
Subjective - Date & Time of Evaluation Date of Evaluation: 12/29/18 - Subjective Subjective: patient seen today nausea present vomittied again twice non bilious with llq abd pain s/p gi dr. puri [facility] covering ofr dr. laguerre. no diarrhea, no fever, no shortness of breath Objective - Vital Signs/Intake and Output Vital Signs (last 24 hours): Temp Pulse Resp BP Pulse Ox 97.9 F 67 20 114/79 97 12/29/18 07:00 12/29/18 07:00 12/29/18 07:00 12/29/18 07:00 12/29/18 07:00 - Medications Medications: Current Medications Acetaminophen (Tylenol 325mg Tab) 650 mg PO Q6 PRN PRN Reason: Pain, Mild (1-3) Cyclobenzaprine HCl (Flexeril) 5 mg PO TID PRN PRN Reason: Muscle spasm Last Admin: 12/28/18 18:40 Dose: 5 mg Ciprofloxacin (Cipro 200mg/100ml D5w) 100 mls @ 67 mls/hr IVPB Q12H [facility]; Protocol Last Admin: 12/29/18 09:45 Dose: 67 mls/hr Metronidazole 250 mg/ (Miscellaneous) 50 mls @ 100 mls/hr IVPB Q8H [facility]; Protocol Last Admin: 12/29/18 14:34 Dose: 100 mls/hr Lidocaine (Lidoderm) 1 ea TD DAILY PRN PRN Reason: Pain, moderate (4-7) Last Admin: 12/28/18 18:40 Dose: 1 ea Losartan Potassium (Cozaar) 50 mg PO DAILY [facility] Last Admin: 12/29/18 09:44 Dose: 50 mg Metoclopramide HCl (Reglan) 5 mg IVP ACTID [facility] Last Admin: 12/29/18 12:30 Dose: 5 mg Ondansetron HCl (Zofran Inj) 4 mg IVP Q8H PRN PRN Reason: Nausea/Vomiting Pantoprazole Sodium (Protonix Inj) 40 mg IVP DAILY [facility] Last Admin: 12/29/18 09:44 Dose: 40 mg Sertraline HCl (Zoloft) 100 mg PO DAILY [facility] Last Admin: 12/29/18 09:44 Dose: 100 mg - Labs Labs: 12/29/18 07:00 12/29/18 07:00 - Constitutional Appears: Well - Head Exam Head Exam: ATRAUMATIC, NORMAL INSPECTION, NORMOCEPHALIC - Eye Exam Eye Exam: EOMI, Normal appearance, PERRL Pupil Exam: NORMAL ACCOMODATION, PERRL - ENT Exam ENT Exam: Mucous Membranes Moist, Normal Exam - Neck Exam Neck Exam: Full ROM, Normal Inspection. absent: Lymphadenopathy - Respiratory Exam Respiratory Exam: Decreased Breath Sounds - Cardiovascular Exam Cardiovascular Exam: REGULAR RHYTHM, +S1, +S2 - GI/Abdominal Exam GI & Abdominal Exam: Soft, Diminished Bowel Sounds - Rectal Exam Rectal Exam: Deferred - Neurological Exam Neurological Exam: Oriented x3 Assessment and Plan - Assessment and Plan (Free Text) Plan: labs reviewed vitals reviewed medications reviewed cipro cozaar flexeril lidoderm metronidazole protonix inj reglan tylenol zofran zoloft Possible endoscopy monday a.m. Status post seen by Dr. Puri who is covering Dr. Peñaloza note appreciated Discussed with GI Colosaocpy? Continue IV Cipro Continue IV metronidazole Continue IV fluid
[2018-12-29] MEDS: Lidocaine 5% Patch TD PRN (16:05)
[2018-12-30] MEDS: metroNIDAZOLE IV 500 mg/100 ml 250 MG in Premixed IV 1 EA IVPB SCH ×3 (06:47→23:40)
[2018-12-30] MEDS: Ciprofloxacin 200mg/100ml D5W 100 ML IVPB SCH ×2 (09:35→22:23)
--- NOTE | 2018-12-30 10:01 | CP.PCM.PN ---
Subjective - Date & Time of Evaluation Date of Evaluation: 12/30/18 Time of Evaluation: 09:59 - Subjective Subjective: COVERING DR STEEN Patient feels better with less pain but still 2-3 episodes of bilious vomiting. Doesnt think she will be able to take a colonoscopy prep without vomiting Objective - Vital Signs/Intake and Output Vital Signs (last 24 hours): Temp Pulse Resp BP Pulse Ox 98.0 F 86 20 131/93 H 95 12/30/18 07:50 12/30/18 09:46 12/30/18 07:50 12/30/18 09:46 12/30/18 07:50 - Medications Medications: Current Medications Acetaminophen (Tylenol 325mg Tab) 650 mg PO Q6 PRN PRN Reason: Pain, Mild (1-3) Last Admin: 12/29/18 16:05 Dose: 650 mg Cyclobenzaprine HCl (Flexeril) 5 mg PO TID PRN PRN Reason: Muscle spasm Last Admin: 12/29/18 22:34 Dose: 5 mg Ciprofloxacin (Cipro 200mg/100ml D5w) 100 mls @ 67 mls/hr IVPB Q12H [facility]; Protocol Last Admin: 12/30/18 09:35 Dose: 67 mls/hr Metronidazole 250 mg/ (Miscellaneous) 50 mls @ 100 mls/hr IVPB Q8H [facility]; Protocol Last Admin: 12/30/18 06:47 Dose: 100 mls/hr Lidocaine (Lidoderm) 1 ea TD DAILY PRN PRN Reason: Pain, moderate (4-7) Last Admin: 12/29/18 16:05 Dose: 1 ea Losartan Potassium (Cozaar) 50 mg PO DAILY [facility] Last Admin: 12/30/18 09:43 Dose: 50 mg Metoclopramide HCl (Reglan) 5 mg IVP ACTID [facility] Last Admin: 12/30/18 06:46 Dose: Not Given Ondansetron HCl (Zofran Inj) 4 mg IVP Q8H PRN PRN Reason: Nausea/Vomiting Pantoprazole Sodium (Protonix Inj) 40 mg IVP DAILY [facility] Last Admin: 12/30/18 09:43 Dose: 40 mg Sertraline HCl (Zoloft) 100 mg PO DAILY [facility] Last Admin: 12/30/18 09:43 Dose: 100 mg - Labs Labs: 12/29/18 07:00 04/13/19 07:00 - Constitutional Appears: No Acute Distress - Head Exam Head Exam: ATRAUMATIC, NORMOCEPHALIC - Eye Exam Eye Exam: EOMI, PERRL - Respiratory Exam Respiratory Exam: NORMAL BREATHING PATTERN - Cardiovascular Exam Cardiovascular Exam: REGULAR RHYTHM, +S1 - GI/Abdominal Exam GI & Abdominal Exam: Soft, Normal Bowel Sounds. absent: Tenderness, Mass, Rebound - Extremities Exam Extremities Exam: Normal Inspection Assessment and Plan (1) Abdominal pain, lower Assessment & Plan: Somewhat improved Status: Acute (2) Occult blood in stools Assessment & Plan: Needs EGD and colonoscopy. Will keep NPO for EGD in am and colonoscopy can be done as out patient when able to tolerate prep Status: Acute (3) Vomiting Assessment & Plan: For EGD in am. Continue clear liquids for now as tolerated. Seems to be somewhat improved. Status: Acute (4) Abnormal CT scan, colon Status: Acute
--- NOTE | 2018-12-30 20:50 | CP.PCM.PN ---
Subjective - Date & Time of Evaluation Date of Evaluation: 12/30/18 - Subjective Subjective: patient seen today vomitted twice non bilious nausea present abd discomfrt present but no diarrhea, no shortness of breath, no dizziness, no fever Objective - Vital Signs/Intake and Output Vital Signs (last 24 hours): Temp Pulse Resp BP Pulse Ox 97.9 F 55 L 20 127/85 99 12/30/18 16:00 12/30/18 16:00 12/30/18 16:00 12/30/18 16:00 12/30/18 16:00 - Medications Medications: Current Medications Acetaminophen (Tylenol 325mg Tab) 650 mg PO Q6 PRN PRN Reason: Pain, Mild (1-3) Last Admin: 12/29/18 16:05 Dose: 650 mg Cyclobenzaprine HCl (Flexeril) 5 mg PO TID PRN PRN Reason: Muscle spasm Last Admin: 12/29/18 22:34 Dose: 5 mg Ciprofloxacin (Cipro 200mg/100ml D5w) 100 mls @ 67 mls/hr IVPB Q12H [facility]; Protocol Last Admin: 12/30/18 09:35 Dose: 67 mls/hr Metronidazole 250 mg/ (Miscellaneous) 50 mls @ 100 mls/hr IVPB Q8H [facility]; Protocol Last Admin: 12/30/18 14:34 Dose: 100 mls/hr Lidocaine (Lidoderm) 1 ea TD DAILY PRN PRN Reason: Pain, moderate (4-7) Last Admin: 12/29/18 16:05 Dose: 1 ea Losartan Potassium (Cozaar) 50 mg PO DAILY [facility] Last Admin: 12/30/18 09:43 Dose: 50 mg Metoclopramide HCl (Reglan) 5 mg IVP ACTID [facility] Last Admin: 12/30/18 16:39 Dose: 5 mg Ondansetron HCl (Zofran Inj) 4 mg IVP Q8H PRN PRN Reason: Nausea/Vomiting Pantoprazole Sodium (Protonix Inj) 40 mg IVP DAILY [facility] Last Admin: 12/30/18 09:43 Dose: 40 mg Sertraline HCl (Zoloft) 100 mg PO DAILY [facility] Last Admin: 12/30/18 09:43 Dose: 100 mg - Labs Labs: 12/29/18 07:00 04/13/19 07:00 - Constitutional Appears: Well - Head Exam Head Exam: ATRAUMATIC, NORMAL INSPECTION, NORMOCEPHALIC - Eye Exam Eye Exam: EOMI, Normal appearance, PERRL Pupil Exam: NORMAL ACCOMODATION, PERRL - ENT Exam ENT Exam: Mucous Membranes Moist, Normal Exam - Neck Exam Neck Exam: Full ROM, Normal Inspection. absent: Lymphadenopathy - Respiratory Exam Respiratory Exam: Decreased Breath Sounds - Cardiovascular Exam Cardiovascular Exam: REGULAR RHYTHM, +S1, +S2 - GI/Abdominal Exam GI & Abdominal Exam: Soft, Diminished Bowel Sounds - Rectal Exam Rectal Exam: Deferred - Neurological Exam Neurological Exam: Oriented x3 Assessment and Plan - Assessment and Plan (Free Text) Plan: patient vomited this morning GI to follow for endoscopy by Dr. Rc burgess or miranda PRN for vomiting continue antibiotics cipro cozaar flexeril lidoderm metronidazole protonix inj reglan tylenol zofran zoloft medications reviewed labs reviewed vitals reviewed
[2018-12-31] MEDS: metroNIDAZOLE IV 500 mg/100 ml 250 MG in Premixed IV 1 EA IVPB SCH ×3 (06:34→22:43)
[2018-12-31 06:46] LABS: INR 1.1; PROTHROMBIN TIME 12.4 SECONDS (9.7-12.2)
--- NOTE | 2018-12-31 08:44 | RAD ---
Chest x-ray single frontal view HISTORY: Preoperative evaluation. COMPARISON: None available. FINDINGS: No focal infiltrate or effusion. Tortuous aorta. Top normal heart size. Degenerative changes in the spine. IMPRESSION: No focal infiltrate or effusion.
[2018-12-31] MEDS ORDERED: Lactated Ringer's 1,000 ML IV ONE (09:03)
[2018-12-31] MEDS ORDERED: Propofol 10 mg/ml Inj (20 ML) ONE (09:10)
[2018-12-31] MEDS: Ciprofloxacin 200mg/100ml D5W 100 ML IVPB SCH ×2 (10:30→21:11)
--- NOTE | 2018-12-31 14:41 | CP.PCM.PN ---
Subjective - Date & Time of Evaluation Date of Evaluation: 12/31/18 - Subjective Subjective: patient was examined today vomitted once today nausea present pt wants to go home no fever, no dizziness, no diarrhea, no shortness of breath Objective - Vital Signs/Intake and Output Vital Signs (last 24 hours): Temp Pulse Resp BP Pulse Ox 97.3 F L 62 18 138/82 97 12/31/18 09:56 12/31/18 09:56 12/31/18 09:56 12/31/18 09:56 12/31/18 09:56 - Medications Medications: Current Medications Acetaminophen (Tylenol 325mg Tab) 650 mg PO Q6 PRN PRN Reason: Pain, Mild (1-3) Last Admin: 12/31/18 10:28 Dose: 650 mg Cyclobenzaprine HCl (Flexeril) 5 mg PO TID PRN PRN Reason: Muscle spasm Last Admin: 12/29/18 22:34 Dose: 5 mg Ciprofloxacin (Cipro 200mg/100ml D5w) 100 mls @ 67 mls/hr IVPB Q12H [facility]; Protocol Last Admin: 12/31/18 10:30 Dose: 67 mls/hr Metronidazole 250 mg/ (Miscellaneous) 50 mls @ 100 mls/hr IVPB Q8H [facility]; Protocol Last Admin: 12/31/18 06:34 Dose: 100 mls/hr Lidocaine (Lidoderm) 1 ea TD DAILY PRN PRN Reason: Pain, moderate (4-7) Last Admin: 12/29/18 16:05 Dose: 1 ea Losartan Potassium (Cozaar) 50 mg PO DAILY [facility] Last Admin: 12/31/18 10:29 Dose: 50 mg Metoclopramide HCl (Reglan) 5 mg IVP ACTID [facility] Last Admin: 12/31/18 12:20 Dose: Not Given Ondansetron HCl (Zofran Inj) 4 mg IVP Q8H PRN PRN Reason: Nausea/Vomiting Pantoprazole Sodium (Protonix Inj) 40 mg IVP DAILY [facility] Last Admin: 12/31/18 10:30 Dose: 40 mg Pneumococcal Polyvalent Vaccine (Pneumovax 23 Vaccine) 0.5 ml IM .ONCE ONE Stop: 01/01/19 10:01 Sertraline HCl (Zoloft) 100 mg PO DAILY [facility] Last Admin: 12/31/18 10:28 Dose: 100 mg - Labs Labs: 12/29/18 07:00 12/29/18 07:00 PT 12.4 SECONDS (9.7-12.2) H 12/31/18 06:29 INR 1.1 12/31/18 06:29 - Constitutional Appears: Well - Head Exam Head Exam: ATRAUMATIC, NORMAL INSPECTION, NORMOCEPHALIC - Eye Exam Eye Exam: EOMI, Normal appearance, PERRL Pupil Exam: NORMAL ACCOMODATION, PERRL - ENT Exam ENT Exam: Mucous Membranes Moist, Normal Exam - Neck Exam Neck Exam: Full ROM, Normal Inspection. absent: Lymphadenopathy - Respiratory Exam Respiratory Exam: Decreased Breath Sounds - Cardiovascular Exam Cardiovascular Exam: REGULAR RHYTHM, +S1, +S2 - GI/Abdominal Exam GI & Abdominal Exam: Soft, Diminished Bowel Sounds - Rectal Exam Rectal Exam: Deferred - Neurological Exam Neurological Exam: Oriented x3 Assessment and Plan - Assessment and Plan (Free Text) Plan: labs reviewed medications reviewed labs reviewed cipro cozaar flexeril lidoderm metronidazole protonix inj reglan tylenol zofran zoloft Patient wants to go home attributing it to the gas Patient seen by Dr. Peñaloza
[2018-12-31] MEDS ORDERED: Simethicone 80 mg Chewtab PO PRN (23:25)
[2019-01-01] MEDS: metroNIDAZOLE IV 500 mg/100 ml 250 MG in Premixed IV 1 EA IVPB SCH (06:36)
[2019-01-01 07:40] VITALS: BP 119/80; PULSE 61; RESP 20; TEMP 97.4; O2SAT 99
[2019-01-01] MEDS: Ciprofloxacin 200mg/100ml D5W 100 ML IVPB SCH (09:29)
[2019-01-01] MEDS ORDERED: Pneumococcal 23-Valent Vaccine IM ONE (10:00)
--- NOTE | 2019-01-01 19:11 | CP.PCM.DIS ---
Provider - Provider Date of Admission: 12/28/18 08:48 Attending physician: Wilberto Oliva MD Consults: 12/28/18 08:48 Gastroenterology Consult Routine Comment: Consulting Provider: Rd Tatum Consulting Physician: Rd Tatum Reason for Consult: colitis, guaiaic + Hospital Course - Lab Results Lab Results: Micro Results 12/28/18 10:12 Blood-Venous Blood Culture - Preliminary NO GROWTH AFTER 4 DAYS 12/28/18 09:16 Blood-Venous Blood Culture - Preliminary NO GROWTH AFTER 4 DAYS 12/28/18 10:24 Urine Random Urine Culture - Final No Growth (<1,000 CFU/ML) Most Recent Lab Values WBC 8.3 K/uL (4.8-10.8) 12/29/18 07:00 RBC 4.51 Mil/uL (3.80-5.20) 12/29/18 07:00 Hgb 14.2 g/dL (11.0-16.0) 12/29/18 07:00 Hct 40.8 % (34.0-47.0) 12/29/18 07:00 MCV 90.5 fL (81.0-99.0) 12/29/18 07:00 MCH 31.4 pg (27.0-31.0) H 12/29/18 07:00 MCHC 34.7 g/dL (33.0-37.0) 12/29/18 07:00 RDW 13.5 % (11.5-14.5) 12/29/18 07:00 Plt Count 259 K/uL (130-400) 12/29/18 07:00 MPV 9.8 fL (7.2-11.7) 12/29/18 07:00 Neut % (Auto) 51.2 % (50.0-75.0) 12/29/18 07:00 Lymph % (Auto) 40.6 % (20.0-40.0) H 12/29/18 07:00 [place] % (Auto) 6.6 % (0.0-10.0) 12/29/18 07:00 Eos % (Auto) 0.7 % (0.0-4.0) 12/29/18 07:00 Baso % (Auto) 0.9 % (0.0-2.0) 12/29/18 07:00 Neut # (Auto) 4.2 K/uL (1.8-7.0) 12/29/18 07:00 Lymph # (Auto) 3.4 K/uL (1.0-4.3) 12/29/18 07:00 [place] # (Auto) 0.5 K/uL (0.0-0.8) 12/29/18 07:00 Eos # (Auto) 0.1 K/uL (0.0-0.7) 12/29/18 07:00 Baso # (Auto) 0.1 K/uL (0.0-0.2) 12/29/18 07:00 PT 12.4 SECONDS (9.7-12.2) H 12/31/18 06:29 INR 1.1 12/31/18 06:29 Sodium 139 mmol/L (132-148) 12/29/18 07:00 Potassium 3.7 mmol/L (3.6-5.2) 12/29/18 07:00 Chloride 109 mmol/L (98-107) H 12/29/18 07:00 Carbon Dioxide 22 mmol/L (22-30) 12/29/18 07:00 Anion Gap 12 (10-20) 12/29/18 07:00 BUN 11 mg/dL (7-17) 12/29/18 07:00 Creatinine 0.8 mg/dL (0.7-1.2) 12/29/18 07:00 Est GFR ( Amer) > 60 12/29/18 07:00 Est GFR (Non-Af Amer) > 60 12/29/18 07:00 POC Glucose (mg/dL) 80 mg/dL (65-110) 12/28/18 20:54 Random Glucose 73 mg/dL (65-105) D 12/29/18 07:00 Calcium 8.6 mg/dl (8.6-10.4) 12/29/18 07:00 Phosphorus 3.8 mg/dL (2.5-4.5) 12/29/18 07:00 Magnesium 2.0 mg/dL (1.6-2.3) 12/29/18 07:00 Total Bilirubin 0.5 mg/dL (0.2-1.3) 12/29/18 07:00 AST 25 U/L (14-36) 12/29/18 07:00 ALT 22 U/L (9-52) 12/29/18 07:00 Alkaline Phosphatase 71 U/L (38-126) 12/29/18 07:00 Total Protein 6.1 g/dL (6.3-8.3) L 12/29/18 07:00 Albumin 3.6 g/dL (3.5-5.0) 12/29/18 07:00 Globulin 2.4 gm/dL (2.2-3.9) 12/29/18 07:00 Albumin/Globulin Ratio 1.5 (1.0-2.1) 12/29/18 07:00 Lipase 46 U/L (23-300) 12/28/18 07:55 Urine Color Yellow (YELLOW) 12/28/18 10:24 Urine Clarity Clear (Clear) 12/28/18 10:24 Urine pH 5.0 (5.0-8.0) 12/28/18 10:24 Ur Specific [place] 1.010 (1.003-1.030) 12/28/18 10:24 Urine Protein Negative mg/dL (NEGATIVE) 12/28/18 10:24 Urine Glucose (UA) Normal mg/dL (Normal) 12/28/18 10:24 Urine Ketones Negative mg/dL (NEGATIVE) 12/28/18 10:24 Urine Blood Negative (NEGATIVE) 12/28/18 10:24 Urine Nitrate Negative (NEGATIVE) 12/28/18 10:24 Urine Bilirubin Negative (NEGATIVE) 12/28/18 10:24 Urine Urobilinogen Normal mg/dL (0.2-1.0) 12/28/18 10:24 Ur Leukocyte Esterase Neg Fidelia/uL (Negative) 12/28/18 10:24 Urine WBC (Auto) 4 /hpf (0-5) 12/28/18 10:24 Urine RBC (Auto) 1 /hpf (0-3) 12/28/18 10:24 Ur Squamous Epith Cells 3 /hpf (0-5) 12/28/18 10:24 Urine Bacteria Rare (<OCC) 12/28/18 10:24 Urine HCG, Qual Negative (NEGATIVE) 12/31/18 06:56 Stool Occult Blood Positive (NEGATIVE) H 12/28/18 07:53 Discharge Exam - Head Exam Head Exam: ATRAUMATIC, NORMAL INSPECTION, NORMOCEPHALIC - Eye Exam Eye Exam: EOMI, Normal appearance, PERRL Pupil Exam: NORMAL ACCOMODATION, PERRL - Respiratory Exam Respiratory Exam: Decreased Breath Sounds - Cardiovascular Exam Cardiovascular Exam: REGULAR RHYTHM, +S1, +S2 - GI/Abdominal Exam GI & Abdominal Exam: Diminished Bowel Sounds, Soft - Rectal Exam Rectal Exam: Deferred - Neurological Exam Neurological exam: Oriented x3 Discharge Plan - Follow Up Plan Condition: GOOD Disposition: HOME/ ROUTINE Instructions: Metronidazole (Systemic), [place] Diet, Piperacillin and Tazobactam, Colitis (DC) Additional Instructions: FOLLOW UP WITH PRIMARY MEDICAL DOCTOR IN 1 WEEK ADVANCE DIET SLOWLY, AVOID ALCOHOL OR SPICY FOODS CONTINUE WITH PO FLAGYL AND ZOSYN GIVEN WITH LAST VISIT FOLLOW UP GI IN THE OFFICE IF SYMPTOMS PERSISTS SEGUIMIENTO CON EL MD[place] DE PRIMARIA EN DANIEL SEMANA DIETA AVANZADA LENTAMENTE, EVITE EL ALCOHOL O LOS ALIMENTOS PICANTES CONTINE CON PO FLAGYL Y ZOSYN SEGN LA LTIMA VISITA SIGUE A GI EN LA OFICINA SI LOS SNTOMAS PERSISTEN Referrals: Emily Oliva MD [Staff Provider] - Rd Tatum MD [Staff Provider] -
--- NOTE | 2019-01-01 20:50 | CARD ---
APPROVED REPORT Date of service: 12/31/2018 EKG Measurement Heart [id number] <Conclusion> Normal sinus rhythm Low voltage QRS Lateral infarct, age undetermined Abnormal ECG
== END 2019-01-01 14:00 | disposition home or self-care (01) ==
LOC: C.ER 06:01 → C.9E 08:48 → C.5S 11:47
PROVIDERS: ADMIT Internal Medicine Nephrology; ATTEND Internal Medicine Nephrology
DX: K52.9 Noninfective gastroenteritis and colitis, unspecified (principal); K29.70 Gastritis, unspecified, without bleeding; K44.9 Diaphragmatic hernia without obstruction or gangrene
CPT/HCPCS: 36415; 43239; 71045; 74175; 80053; 81001; 82948; 83690; 83735; 84100; 84703; 85025; 85610; 87040; 87086; 88104; 88305; 88312; 88313; 88342; 90732; 93005; 96360; 96365; 96374; 99285; C9113; G0009; G0328; G0378; J0744; J2405; J2704; J2765; J7030; J7120; Q9967